=== PATIENT | female | born 1995 | race Caucasian/White ===

== ENCOUNTER 2022-01-27 13:38 | Emergency (ER) | payer OTHER ==
[2022-01-27 16:28] LABS: ESTIMATED GFR 105 mL/min (>60)
== END 2022-01-27 18:13 | disposition home or self-care (01) ==
LOC: JP.ED 13:38 → EDBD 13:38 → JP.ED 18:13
DX: O99.891 Other specified diseases and conditions complicating pregnancy (principal); R10.32 Left lower quadrant pain; Z88.0 Allergy status to penicillin; Z88.1 Allergy status to other antibiotic agents; Z88.2 Allergy status to sulfonamides; Z3A.01 Less than 8 weeks gestation of pregnancy
CPT/HCPCS: 36415; 76801; 80053; 81001; 84702; 85025; 93976; 99284